=== PATIENT | female | born 1985 | race African-American/Black ===

== ENCOUNTER 2017-06-11 09:39 | Emergency (ER) | payer OTHER ==
[2017-06-11 09:50] VITALS: BP 135/89
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
== END 2017-06-11 10:45 | disposition home or self-care (01) ==
LOC: ER 09:39
DX: M54.5 Low back pain (principal); R07.81 Pleurodynia; V47.6XXA Car passenger injured in collision with fixed or stationary object in traffic accident, initial encounter; F17.210 Nicotine dependence, cigarettes, uncomplicated
CPT/HCPCS: 72110; 99283

== ENCOUNTER 2017-08-03 14:22 | Emergency (ER) | payer SELFPAY ==
[2017-08-03] MEDS ORDERED: ACETAMINOPHEN SOLN 325 MG/10.15 ML UDCUP PO ONE (14:47)
[2017-08-03] MEDS ORDERED: IBUPROFEN 800 MG TABLET PO ONE (15:08)
[2017-08-03] MEDS ORDERED: HYDROCODONE/ACETAMINOPHEN 5-325 MG TABLET PO ONE (15:08)
--- NOTE | 2017-08-03 15:13 | ER Document Report ---
ED Flu Like - General Chief Complaint: Flu Symptoms Stated Complaint: COUGH,DIARRHEA,BODY ACHES Time Seen by Provider: 08/03/17 15:01 Mode of Arrival: Ambulatory Information source: Patient Notes: This 31-year-old female patient comes emergency room with a 3 day history of cough, congestion, chills, generalized body aches. She reports some diarrhea for the past 2 days. Last menstrual period started 2 days ago. She did not get a flu shot this year. At triage her temperature is 103.6 She has an essentially nonproductive cough, however had noted some traces of blood after a lot of hard coughing. TRAVEL OUTSIDE OF THE [place] IN LAST 30 DAYS: No - Related Data Allergies/Adverse Reactions: No Known Allergies Allergy (Verified 08/03/17 14:58) Past Medical History - General Information source: Patient - Social History Smoking Status: Former Smoker - Quit about a year ago Cigarette use (# per day): No Chew tobacco use (# tins/day): No Smoking Education Provided: No Frequency of alcohol use: None Drug Abuse: None Occupation: [employer] Lives with: Spouse/Significant other Family History: CAD, Hypertension Patient has suicidal ideation: No Patient has homicidal ideation: No Neurological Medical History: Reports: Hx Migraine Psychiatric Medical History: Reports: None Surgical Hx: Negative - Immunizations Immunizations up to date: Yes Hx Diphtheria, Pertussis, Tetanus Vaccination: Yes Review of Systems - Review of Systems Constitutional: Chills, Fever EENT: Nose congestion, Sinus pressure Cardiovascular: No symptoms reported Respiratory: See HPI, Cough Gastrointestinal: See HPI, Diarrhea. denies: Vomiting Genitourinary: No symptoms reported Female Genitourinary: Last menstrual period - 08/01/2017. denies: Musculoskeletal: No symptoms reported Skin: No symptoms reported Hematologic/Lymphatic: No symptoms reported Neurological/Psychological: No symptoms reported Physical Exam - Vital signs Vitals: Temp Pulse Resp BP Pulse Ox 103.6 F H 113 H 16 122/91 H 98 08/03/17 14:34 08/03/17 14:34 08/03/17 14:34 08/03/17 14:34 08/03/17 14:34 Interpretation: Febrile - General General appearance: Appears well, Alert In distress: None - HEENT Head: Normocephalic, Atraumatic Eyes: Normal Pupils: PERRL Ears: Normal External canal: Normal Tympanic membrane: Normal Pharynx: Erythema. No: Exudate, Tonsillar hypertrophy, Uvular edema Neck: Normal - Respiratory Respiratory status: No respiratory distress Breath sounds: Nonproductive cough, Other - Coarse breath sounds. Breath sounds decreased in the right basilar region. - Cardiovascular Rhythm: Regular, Tachycardia Heart sounds: Normal auscultation Murmur: No - Abdominal Inspection: Obese Bowel sounds: Normal Tenderness: Nontender - Back Back: Normal - Extremities General upper extremity: Normal inspection General lower extremity: Normal inspection - Neurological Neuro grossly intact: Yes - Psychological Associated symptoms: Normal affect, Normal mood - Skin Skin Temperature: Warm Skin Moisture: Dry Skin Color: Normal Course - Re-evaluation Re-evalutation: 08/03/17 16:08 The chest x-ray shows extensive consolidation of the right middle lobe. There is mild infiltrate in the lower part of the right upper lung. Some of this overlies the hilar vessel giving the appearance of hilar adenopathy. As adenopathy cannot be ruled out, the patient will have a PPD placed. She has never had a PPD done before that she knows of and has never had a diagnosis of tuberculosis. 08/03/17 17:48 Influenza test is negative, white blood cell count would suggest an atypical pneumonia infiltrate, lactate is normal. Patient will be discharged on Levaquin 750 for total of 5 days, she is to return in 3 days to recheck her pneumonia and her TB skin test. She is advised to stay at home and avoid other people and get plenty of rest between and Saturday. - Vital Signs Vital signs: Temp Pulse Resp BP Pulse Ox 103.6 F H 113 H 16 122/91 H 98 08/03/17 14:34 08/03/17 14:34 08/03/17 14:34 08/03/17 14:34 08/03/17 14:34 - Laboratory Result Diagrams: 08/03/17 16:42 08/03/17 16:42 Laboratory results interpreted by me: 08/03/17 08/03/17 16:42 16:42 Hgb 10.7 L Hct 33.0 L MCV 76 L MCH 24.8 L RDW 15.5 H Sodium 136.5 L Potassium 3.5 L Chloride 97 L Glucose 113 H AST 44 H - Diagnostic Test Radiology reviewed: Image reviewed, Reports reviewed - Extensive right middle lobe consolidation with probable minimal right upper lobe infiltrate overlying the hilar vessels. This appearance could be hilar adenopathy but is likely infiltrate overlying the hilar vessels. Discharge - Discharge Clinical Impression: Right middle lobe pneumonia Qualifiers: Pneumonia type: due to unspecified organism Qualified Code(s): J18.1 - Lobar pneumonia, unspecified organism Fever Qualifiers: Fever type: unspecified Qualified Code(s): R50.9 - Fever, unspecified Condition: Stable Disposition: HOME, SELF-CARE Additional Instructions: Pneumonia: Your examination indicates that you have pneumonia. This is an infection of the lung tissue, usually caused by bacteria or a virus. Symptoms include cough, fever, shaking chills, chest pain, shortness of breath, and coughing up bloody sputum. Treatment for bacterial pneumonia includes rest, antibiotics for 10 to 14 days, increasing your clear liquid intake, a cool mist humidifier at your bedside, and fever medication. Often, a repeat chest X-ray is performed in a few weeks--even if you feel better--to ascertain whether the infection has completely resolved and no underlying lung problem is present. You should call the physician if you develop persistent vomiting, high fever that does not respond to fever medication, increasing shortness of breath , confusion, or lethargy. Also, failure to improve within two to three days is an indication for re-examination. Tuberculosis Test: You have been given a tuberculosis (TB) skin test. TB is a slow-growing bacteria that infects the lungs. It can be a serious disease, particularly in patients with weak immune systems. Tuberculosis can smolder in your body for years before suddenly worsening. The TB skin test uses a small amount of tuberculosis protein, placed just under the skin. If the test area becomes raised or swollen, it means you've been infected with TB at some time. The test site needs to be checked at two or three days. If your test is positive, you will need further evaluation to see if you have active tuberculosis. Start the Levaquin as prescribed tomorrow. Drink plenty of fluids and get plenty of rest. Take Tylenol every 4 hours for fever as needed. Try Robitussin-DM to help control your cough. Return Saturday for recheck of your tuberculosis skin test and to recheck your pneumonia. Return sooner if any worsening of your symptoms. RETURN TO THE EMERGENCY ROOM IF ANY NEW OR WORSENING SYMPTOMS. Prescriptions: Levofloxacin [Levaquin 750 mg Tablet] 750 mg PO DAILY #4 tablet Forms: Return to Work
[2017-08-03] MEDS ORDERED: LEVOFLOXACIN 750 MG TABLET PO ONE (15:41)
--- NOTE | 2017-08-03 15:46 | RADIOLOGY REPORT (SQ) ---
EXAM DESCRIPTION: CHEST 2 VIEWS COMPLETED DATE/TIME: 08/03/2017 3:33 pm REASON FOR STUDY: fever, cough, congestion COMPARISON: 06/11/2017. TECHNIQUE: Frontal and lateral radiographic views of the chest acquired. NUMBER OF VIEWS: Two view. LIMITATIONS: None. FINDINGS: LUNGS AND PLEURA: Extensive consolidation in the right middle lobe consistent with pneumon ia. Suspect some minimal right upper lobe infiltrate as well. Probable right hilar adenopathy. Lef t lung clear. No pleural fluid. No abnormal gas. MEDIASTINUM AND HILAR STRUCTURES: No masses or contour abnormalities. HEART AND VASCULAR STRUCTURES: Heart normal size. No evidence for failure. BONES: No acute findings. HARDWARE: None in the chest. OTHER: No other significant finding. IMPRESSION: 1. Right pneumonia. Possible associated right hilar adenopathy (which raises the possib ility of TB). Findings discussed with NATHANAEL NARAYANAN MD at15:40 on 08/03/2017. TECHNICAL DOCUMENTATION: JOB ID: [id number] [email or web address]- All Rights Reserved Reading location - IP/workstation name: [email or web address]
[2017-08-03 16:06] LABS: A TYPE INFLUENZA AG NEGATIVE (NEGATIVE); B INFLUENZA AG NEGATIVE (NEGATIVE)
[2017-08-03] MEDS ORDERED: TUBERCULIN,PURIF.PROT.DERIV. 5 TU/0.1 ML TEST 1 ML VIAL ID ONE (16:07)
[2017-08-03 17:14] LABS: ABSOLUTE BASOPHILS # (AUTO) 0.1 10^3/uL (0.0-0.2); ABSOLUTE LYMPHOCYTES (AUTO) 1.6 10^3/uL (0.5-4.7); ABSOLUTE MONOCYTES (AUTO) 0.7 10^3/uL (0.1-1.4); ABSOLUTE NEUT (AUTO) 6.2 10^3/uL (1.7-8.2); BASOPHILS % (AUTO) 0.6 % (0-2); EOSINOPHILS % (AUTO) 0.1 % (0-6); HEMOGLOBIN 10.7 g/dL (12.0-15.5); LYMPHOCYTES % (AUTO) 18.6 % (13-45); MEAN CORPUSCULAR HEMOGLOBIN 24.8 pg (27.0-33.4); MEAN CORPUSCULAR HGB CONC 32.5 g/dL (32.0-36.0); MEAN CORPUSCULAR VOLUME 76 fl (80-97); MONOCYTES % (AUTO) 7.7 % (3-13); PLATELET COUNT 338 10^3/uL (150-450); RED BLOOD COUNT 4.33 10^6/uL (3.72-5.28); RED CELL DISTRIBUTION WIDTH 15.5 % (11.5-14.0); TOTAL CELLS COUNTED % (AUTO) 100 %; WHITE BLOOD COUNT 8.5 10^3/uL (4.0-10.5)
[2017-08-03 17:23] LABS: ALANINE AMINOTRANSFERASE 50 U/L (9-52); ALBUMIN 3.7 g/dL (3.5-5.0); ALKALINE PHOSPHATASE 75 U/L (38-126); ANION GAP 16 (5-19); ASPARTATE AMINO TRANSFERASE 44 U/L (14-36); BILIRUBIN,DIRECT 0.4 mg/dL (0.0-0.4); BILIRUBIN,TOTAL 0.4 mg/dL (0.2-1.3); BLOOD UREA NITROGEN 7 mg/dL (7-20); CALCIUM 9.1 mg/dL (8.4-10.2); CARBON DIOXIDE 24 mmol/L (22-30); CHLORIDE 97 mmol/L (98-107); GLUCOSE 113 mg/dL (75-110); POTASSIUM 3.5 mmol/L (3.6-5.0); SODIUM 136.5 mmol/L (137-145); TOTAL PROTEIN 7.5 g/dL (6.3-8.2)
[2017-08-03 18:02] VITALS: BP 123/83
== END 2017-08-03 18:02 | disposition home or self-care (01) ==
LOC: ER 14:22
DX: J18.1 Lobar pneumonia, unspecified organism (principal); R50.9 Fever, unspecified; R05 Cough; R09.81 Nasal congestion; R19.7 Diarrhea, unspecified; M79.1 Myalgia; Z87.891 Personal history of nicotine dependence
CPT/HCPCS: 99284; 96372; 36415; 87040; 85025; 80053; 83605; 87804; 71046; J3490 ×2

== ENCOUNTER 2017-08-06 21:12 | Emergency (ER) | payer SELFPAY ==
--- NOTE | 2017-08-06 22:01 | ER Document Report ---
HPI - HPI Pain Level: 1 Notes: Patient is a 31-year-old female with no significant past medical history who presents to the ED for pneumonia recheck. Patient states that she has a right- sided pneumonia and was placed on Levaquin. She has another day left. Patient states that she has been feeling well and her symptoms have not been worsening, but does continue to have a cough. She is eating and drinking without any difficulties. She is urinating normally and having normal bowel movements. She has not had any recurrence of the fever. She also received a PPD prior to discharge from her appointment and have that read at triage today. Denies any drug allergies. Denies any smoking or IV drug use. Denies any headache, fever , neck pain, URI, sore throat, chest pain, palpitations, syncope, shortness of breath, wheeze, dyspnea, abdominal pain, nausea/vomiting/diarrhea, urinary retention, dysuria, hematuria, or rash. - ROS Systems Reviewed and Negative: Yes All other systems reviewed and negative - CONSTITUTIONAL Constitutional: DENIES: Fever, Chills - EENT EENT: DENIES: Sore Throat, Ear Pain, Eye problems - NEURO Neurology: DENIES: Headache - CARDIOVASCULAR Cardiovascular: DENIES: Chest pain - RESPIRATORY Respiratory: REPORTS: Coughing. DENIES: Trouble Breathing - GASTROINTESTINAL Gastrointestinal: DENIES: Abdominal Pain, Black / Bloody Stools - URINARY Urinary: DENIES: Dysuria, Urgency, Frequency - REPRODUCTIVE Reproductive: DENIES: : - MUSCULOSKELETAL Musculoskeletal: DENIES: Extremity pain Past Medical History - Social History Smoking Status: Never Smoker Chew tobacco use (# tins/day): No Frequency of alcohol use: None Drug Abuse: None Family History: CAD, Hypertension Patient has suicidal ideation: No Patient has homicidal ideation: No Neurological Medical History: Reports: Hx Migraine Renal/ Medical History: Denies: Hx Peritoneal Dialysis - Immunizations Immunizations up to date: Yes Hx Diphtheria, Pertussis, Tetanus Vaccination: Yes Vertical Provider Document - CONSTITUTIONAL Agree With Documented VS: Yes Notes: PHYSICAL EXAMINATION: GENERAL: Well-appearing, well-nourished and in no acute distress. A&Ox4. Answers questions appropriately. Moves comfortably w/o notable distress HEAD: Atraumatic, normocephalic. EYES: Pupils equal round and reactive to light, extraocular movements intact, sclera anicteric, conjunctiva are normal. ENT: EAC clear b/l. TM's intact b/l without erythema, fluid, or perforation. Nares patent and without discharge. oropharynx no erythema without exudates. No tonsilar hypertrophy without erythema or exudate. No palatine shift. Uvula midline. No tongue protrusion. No drooling, hoarseness, or airway compromise. Moist mucous membranes. No sinus tenderness. NECK: Normal range of motion, supple without lymphadenopathy. No rigidity/ meningismus. LUNGS: Breath sounds clear to auscultation bilaterally and equal. No wheezes rales or rhonchi. No retractions HEART: Regular rate and rhythm without murmurs, rubs, gallops. ABDOMEN: Soft, nontender, nondistended abdomen. No guarding, no rebound. No masses appreciated. Normal bowel sounds present. No CVA tenderness bilaterally. NEUROLOGICAL: Normal speech, normal gait. Normal sensory, motor exams PSYCH: Normal mood, normal affect. SKIN: Warm, Dry, normal turgor, no rashes or lesions noted. - INFECTION CONTROL TRAVEL OUTSIDE OF THE [place] IN LAST 30 DAYS: No Course - Re-evaluation Re-evalutation: 08/06/17 22:04 Patient is an afebrile, well-hydrated, 31-year-old female who presents to the ED with continued pneumonia. Vitals are acceptable. PE is otherwise unremarkable. Patient has no tachycardia, tachypnea, or hypoxia. X-ray showed "slight" improvement of the pneumonia. She is tolerating p.o. without difficulties. Patient states that she only has 1 tablet left. Her PPD test was negative. Low suspicion for any pneumothorax, pericarditis, dissection, respiratory compromise, severe dehydration, sepsis, meningitis, or other systemic emergent condition at this time. Patient is aware that her condition can change from initial presentation and she needs to monitor symptoms closely and seek medical attention for any acute changes. I will extend her treatment for 3 more days as precautionary due to the only "slight" improvement on x-ray. Recommend conservative measures for symptoms. Recheck with your PCM in 3-5 days. Return to the ED with any worsening/concerning symptoms otherwise as reviewed in discharge. Patient is in agreement. - Vital Signs Vital signs: Temp Pulse Resp BP Pulse Ox 98.6 F 70 20 119/81 98 08/06/17 21:45 08/06/17 21:45 08/06/17 21:45 08/06/17 21:45 08/06/17 21:45 Discharge - Discharge Clinical Impression: Pneumonia Qualifiers: Pneumonia type: due to unspecified organism Laterality: right Lung location: middle lobe of lung Qualified Code(s): J18.1 - Lobar pneumonia, unspecified organism Condition: Stable Disposition: HOME, SELF-CARE Instructions: Pneumonia ([facility]) Additional Instructions: Maintain adequate fluid intake Take meds as directed tylenol/ibuprofen as needed over the counter cold medication as needed for symptoms Humidified air may help Wash your hands regularly Wear a mask when coughing F/u: with your PCM in 3-5 days for a recheck Return to the ED with any fever, worsening pain, chest pain, palpitations, syncope, worsening LIEBERMAN, neck pain/stiffness, shortness of breath, wheezing, drooling, trouble swallowing/breathing, abdominal pain, n/v/d, rash, or worsening/concerning symptoms otherwise. Prescriptions: Levofloxacin [Levaquin 750 mg Tablet] 750 mg PO DAILY #3 tablet Referrals: [facility] [Provider Group] - Follow up as needed [facility] [Provider Group] - Follow up as needed
--- NOTE | 2017-08-06 22:03 | RADIOLOGY REPORT (SQ) ---
EXAM DESCRIPTION: CHEST 2 VIEWS COMPLETED DATE/TIME: 08/06/2017 9:52 pm REASON FOR STUDY: cough COMPARISON: 08/03/2017 EXAM PARAMETERS: NUMBER OF VIEWS: two views TECHNIQUE: Digital Frontal and Lateral radiographic views of the chest acquired. RADIATION DOSE: NA LIMITATIONS: none FINDINGS: LUNGS AND PLEURA: Right middle lobe infiltrate is present. There appears to be slight imp rovement. MEDIASTINUM AND HILAR STRUCTURES: No masses or contour abnormalities. HEART AND VASCULAR STRUCTURES: Heart normal size. No evidence for failure. BONES: No acute findings. HARDWARE: None in the chest. OTHER: No other significant finding. IMPRESSION: Slight improvement in right middle lobe pneumonia. TECHNICAL DOCUMENTATION: JOB ID: [id number] [employer]- All Rights Reserved Reading location - IP/workstation name: [email or web address]
[2017-08-06 22:22] VITALS: BP 129/80
== END 2017-08-06 22:23 | disposition home or self-care (01) ==
LOC: ER 21:12
DX: J18.1 Lobar pneumonia, unspecified organism (principal); R05 Cough
CPT/HCPCS: 71046; 99283